=== PATIENT | male | born 1995 | race Caucasian/White ===

== ENCOUNTER 2019-08-08 16:47 | Emergency (ER) | payer SELFPAY ==
[2019-08-08 17:02] VITALS: TEMP 98.8
--- NOTE | 2019-08-08 18:48 | CT ---
EXAM: CT head without contrast CLINICAL INDICATION: Near syncope COMPARISON: There is no previous study for comparison. TECHNIQUE: The CT scan was done using contiguous axial 2.5 mm sections through the brain. This exam was performed according to our departmental dose-optimization program, which includes automated exposure control, adjustment of the mA and/or kV according to patient size and/or use of iterative reconstruction technique. FINDINGS: There is no midline shift, mass effect, or extraaxial fluid collection. There is no evidence of acute intracranial hemorrhage, mass lesion, or cerebral edema. The ventricles and cortical sulci are normal for the patient's age. Bone window images reveal no evidence of a skull fracture. IMPRESSION: No evidence of an acute intracranial process. 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
--- NOTE | 2019-08-08 19:00 | ED.PDOC ---
History of Present Illness - General Chief Complaint: Syncope/Near Syncope Stated Complaint: WHITE, syncopal event Time Seen by Provider: 08/08/19 18:16 Source: patient, RN notes reviewed, Vital Signs reviewed Exam Limitations: no limitations - History of Present Illness Initial Comments: patient had been working an shift yesterday and was walking between the buildings at work started feeling dizzy and his vision home down and he nearly passed out. patient is also complaining of a headache. She denies any dizziness, chest pain, shortness of breath, nausea and diarrhea. Timing/Duration: momentarily Severity: moderate Improving Factors: nothing Worsening Factors: nothing Associated Symptoms: headaches, syncope Allergies/Adverse Reactions: Allergies NO KNOWN ALLERGY Allergy (Verified 08/08/19 17:03) Home Medications: Ambulatory Orders NK 08/08/19 Review of Systems - Review of Systems Constitutional: States: see HPI EENTM: States: see HPI, blurred vision. Denies: eye pain, double vision Respiratory: States: no symptoms reported. Denies: cough, orthopnea, short of b reath Cardiology: States: syncope. Denies: chest pain, palpitations Gastrointestinal/Abdominal: States: no symptoms reported Genitourinary: States: no symptoms reported Musculoskeletal: States: no symptoms reported Skin: States: no symptoms reported Neurological: States: no symptoms reported Endocrine: States: no symptoms reported Hematologic/Lymphatic: States: no symptoms reported All other Systems: Reviewed and Negative Past Medical History (General) - Patient Medical History Hx Stroke: No Hx of COPD: No Hx Cardiac Disorders: No Hx Hypertension: No Hx Diabetes: No Hx Cancer: No Surgical History: no surgical history - Vaccination History Hx Tetanus, Diphtheria Vaccination: No Hx Influenza Vaccination: No Hx Pneumococcal Vaccination: No - Social History Hx Tobacco Use: Yes Hx Alcohol Use: No Hx Substance Use: No Hx Substance Use Treatment: No Hx Depression: No - Female History Patient is a Female of Child Bearing Age (10 -59 yrs old): No Patient : No Family Medical History - Family History Mother Living Status: Still Living Hx Family Diabetes: Yes Physical Exam - Physical Exam General Appearance: Alert, Obese, Well Developed, Well Groomed, Well Hydrated, Well Nourished Eye Exam: bilateral normal Ears, Nose, Throat: hearing grossly normal, normal ENT inspection, normal pharynx Neck: non-tender, full range of motion, supple, normal inspection Respiratory: chest non-tender, lungs clear, normal breath sounds, no respiratory distress, no accessory muscle use Cardiovascular/Chest: normal peripheral pulses, regular rate, rhythm, no edema, no gallop, no JVD, no murmur Peripheral Pulses: radial,right: 2+, radial,left: 2+ Gastrointestinal/Abdominal: normal bowel sounds, non tender, soft Back Exam: normal inspection, no CVA tenderness, no vertebral tenderness Extremity: normal range of motion, non-tender, no pedal edema Neurologic: crystal 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 08/08/19 20:59 Patient's symptoms have completely resolved is feeling much better and desire discharge home. Erlin Webber M.D. #[id number] - Results/Orders Results/Orders: 08/08/19 17:14 EKG Stat Pulse Ox Stat Laboratory Results - last 24 hr 08/08/19 17:30 WBC 4.9 RBC 4.65 L Hgb 14.4 Hct 43.2 MCV 92.7 MCH 30.9 MCHC 33.3 RDW 14.1 Plt Count 199 MPV 8.7 Absolute Neuts (auto) 3.00 Absolute Lymphs (auto) 1.10 Absolute Monos (auto) 0.70 Absolute Eos (auto) 0.10 Absolute Basos (auto) 0.00 Neutrophils % 61.2 Lymphocytes % 22.3 Monocytes % 14.6 H Eosinophils % 1.3 Basophils % 0.6 PT 9.7 INR 0.97 PTT (SP) 26.8 Sodium 141 Potassium 4.2 Chloride 105 Carbon Dioxide 26 Anion Gap 14.2 BUN 14 Creatinine 0.86 BUN/Creatinine Ratio 16.3 Random Glucose 108 H Serum Osmolality 282.3 Calcium 9.3 Magnesium 2.0 Creatine Kinase 272 H* CK-MB (CK-2) 4.4 CK-MB (CK-2) % 1.62 Troponin I < 0.02 B-Natriuretic Peptide < 5.0 EXAM: CT head without contrast CLINICAL INDICATION: Near syncope COMPARISON: There is no previous study for comparison. TECHNIQUE: The CT scan was done using contiguous axial 2.5 mm sections through the brain. This exam was performed according to our departmental dose-optimization program, which includes automated exposure control, adjustment of the mA and/or kV according to patient size and/or use of iterative reconstruction technique. FINDINGS: There is no midline shift, mass effect, or extraaxial fluid collection. There is no evidence of acute intracranial hemorrhage, mass lesion, or cerebral edema. The ventricles and cortical sulci are normal for the patient's age. Bone window images reveal no evidence of a skull fracture. IMPRESSION: No evidence of an acute intracranial process. Electronically signed by: Everette Rasmussen MD 08/08/2019 6:47 PM EXAM DESCRIPTION: CTA Chest CLINICAL HISTORY: 24 years Male syncope COMPARISON: None TECHNIQUE: Images were obtained in axial, sagittal, and coronal planes. Coronal oblique imaging also performed. This exam was performed according to our departmental dose- optimization program which includes use of Automated Exposure Control, adjustment of the mA and/or kV according to patient size and/or use of iterative reconstruction technique. FINDINGS: No filling defects pulmonary arteries bilaterally. No aortic dissection or dilatation. No adenopathy. No pericardial or pleural effusions bilaterally. Decreased attenuation involving liver likely fatty change. Spleen is prominent in size measuring 12.8 cm in greatest dimension. No pneumothorax. No lung parenchymal infiltrates or nodules seen. No acute osseous abnormality. IMPRESSION: No evidence for pulmonary embolus. No aortic dissection or dilatation. No infiltrates seen. 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 Copy, Patient Portal Self Enrollment Instructions: DI for Syncope in Adults (Fainting) Home Medications: Ambulatory Orders NK 08/08/19
[2019-08-08 19:11] VITALS: O2SAT 97
[2019-08-08 20:25] VITALS: BP 111/65
--- NOTE | 2019-08-08 20:31 | CT ---
EXAM DESCRIPTION: CTA Chest CLINICAL HISTORY: 24 years Male syncope COMPARISON: None TECHNIQUE: Images were obtained in axial, sagittal, and coronal planes. Coronal oblique imaging also performed. This exam was performed according to our departmental dose-optimization program which includes use of Automated Exposure Control, adjustment of the mA and/or kV according to patient size and/or use of iterative reconstruction technique. FINDINGS: No filling defects pulmonary arteries bilaterally. No aortic dissection or dilatation. No adenopathy. No pericardial or pleural effusions bilaterally. Decreased attenuation involving liver likely fatty change. Spleen is prominent in size measuring 12.8 cm in greatest dimension. No pneumothorax. No lung parenchymal infiltrates or nodules seen. No acute osseous abnormality. IMPRESSION: No evidence for pulmonary embolus. No aortic dissection or dilatation. No infiltrates seen. 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
== END 2019-08-08 21:05 | disposition home or self-care (01) ==
LOC: ER 16:47
DX: R55 Syncope and collapse (principal); R51 Headache; R00.0 Tachycardia, unspecified; E66.9 Obesity, unspecified; Z68.32 Body mass index [BMI] 32.0-32.9, adult; Z87.891 Personal history of nicotine dependence

== ENCOUNTER 2019-11-28 18:27 | Emergency (ER) | payer SELFPAY | END 2019-11-28 19:06 | disposition left against medical advice (07) | LOC: ER 18:27 | DX: S61.219A Laceration without foreign body of unspecified finger without damage to nail, initial encounter (principal); Z53.21 Procedure and treatment not carried out due to patient leaving prior to being seen by health care provider ==

== ENCOUNTER 2020-01-02 10:47 | Emergency (ER) | payer SELFPAY ==
[2020-01-02 11:18] VITALS: BP 143/84
--- NOTE | 2020-01-02 11:45 | ED.PDOC ---
History of Present Illness - General Chief Complaint: Respiratory Problem Stated Complaint: n/v/d, shortness of breath Time Seen by Provider: 01/02/20 11:22 Source: patient, Vital Signs reviewed, RN/MD Exam Limitations: no limitations - History of Present Illness Comments: Pt is a 24 yo male with no PMH presents to ED for 3 day h/o nonproductive cough, body aches, nausea, vomiting, diarrhea. He denies fever, SOB or abdominal pain. States his boss sent him home from work and needs work note before he can return. Allergies/Adverse Reactions: Allergies NO KNOWN ALLERGY Allergy (Verified 08/08/19 17:03) Home Medications: Ambulatory Orders NK 08/08/19 Review of Systems - Review of Systems Constitutional: Denies: chills, fever, weakness EENTM: States: nose congestion. Denies: throat pain Respiratory: States: cough. Denies: short of breath, wheezing Cardiology: Denies: chest pain, edema, palpitations, syncope Gastrointestinal/Abdominal: States: diarrhea, nausea, vomiting. Denies: abdominal pain Genitourinary: Denies: dysuria, frequency, hematuria Musculoskeletal: States: other - body aches Skin: States: no symptoms reported Neurological: Denies: headache, paresthesia Hematologic/Lymphatic: Denies: easy bleeding, easy bruising All other Systems: Reviewed and Negative Past Medical History (General) - Patient Medical History Hx Stroke: No Hx of COPD: No Hx Cardiac Disorders: No Hx Hypertension: No Hx Diabetes: No Hx Cancer: No Surgical History: no surgical history - Vaccination History Hx Tetanus, Diphtheria Vaccination: No Hx Influenza Vaccination: No Hx Pneumococcal Vaccination: No - Social History Hx Tobacco Use: Yes Hx Chewing Tobacco Use: Yes Hx Alcohol Use: No Hx Substance Use: No Hx Substance Use Treatment: No Hx Depression: No - Female History Patient : No Family Medical History - Family History Mother Living Status: Still Living Hx Family Diabetes: Yes Physical Exam - Physical Exam General Appearance: Alert, Comfortable, No apparent distress ENT Exam: TMs normal, pharynx normal Neck: full range of motion, supple, normal inspection, trachea midline Respiratory: chest non-tender, lungs clear, no respiratory distress, no accessory muscle use Cardiovascular/Chest: regular rate, rhythm, no edema, no murmur Gastrointestinal/Abdominal: non tender, soft, no pulsatile mass Extremity: non-tender, normal inspection, no calf tenderness Progress - Progress Progress: 01/02/20 12:43 Pt presents to ED for 3 day h/o cough and vomiting and body aches. He denies fe iftikhar or SOB. He has had no rrespiraory distress or hypoxia in ED and feels comfortable going home. Labs and imaging reassuring. I have recommended 14 day self quarantine and he will return for any worsening of symptoms. Will f/u with pcp in 1-2 days for recheck. SRP given. - Results/Orders Results/Orders: EXAM DESCRIPTION: Chest,1 View CLINICAL HISTORY: 24 years Male, shortness of breath COMPARISON: None. TECHNIQUE: AP portable chest. FINDINGS: Heart size is normal with normal pulmonary vascularity. No consolidating infiltrate. No pulmonary mass or worrisome nodule. No pneumothorax or pleural effusion. Bones are unremarkable. IMPRESSION: No acute process is identified in the chest. Abnormal Lab Results 01/02/20 01/02/20 11:40 11:40 RBC 4.69 L Absolute Monos (auto) 0.90 H Lymphocytes % 18.9 L Monocytes % 11.9 H Anion Gap 10.5 L Random Glucose 108 H Laboratory Results - last 24 hr 01/02/20 01/02/20 01/02/20 11:35 11:40 11:40 WBC 7.4 RBC 4.69 L Hgb 14.4 Hct 42.9 MCV 91.5 MCH 30.6 MCHC 33.5 RDW 14.4 Plt Count 188 MPV 8.7 Absolute Neuts (auto) 5.00 Absolute Lymphs (auto) 1.40 Absolute Monos (auto) 0.90 H Absolute Eos (auto) 0.10 Absolute Basos (auto) 0.00 Neutrophils % 67.0 Lymphocytes % 18.9 L Monocytes % 11.9 H Eosinophils % 1.8 Basophils % 0.4 Sodium 139 Potassium 4.5 Chloride 109 Carbon Dioxide 24 Anion Gap 10.5 L BUN 11 Creatinine 0.71 BUN/Creatinine Ratio 15.5 Random Glucose 108 H Serum Osmolality 277.5 Calcium 8.8 Total Bilirubin 0.3 AST 25 ALT 39 Alkaline Phosphatase 55 Serum Total Protein 7.1 Albumin 4.1 Globulin 3.0 Albumin/Globulin Ratio 1.4 Urine Color Yellow Urine Appearance Clear Urine pH 7.0 Ur Specific [place] 1.025 Urine Protein Negative Urine Glucose (UA) Negative Urine Ketones Negative Urine Blood Negative Urine Nitrite Negative Urine Bilirubin Negative Urine Urobilinogen 0.2 Ur Leukocyte Esterase Negative Urine RBC 0-1 Urine WBC 0 Ur Epithelial Cells 0 Amorphous Sediment Trace Urine Bacteria 0 Departure - Departure Clinical Impression: Upper respiratory infection Qualifiers: URI type: unspecified URI Qualified Code(s): J06.9 - Acute upper respiratory infection, unspecified Time of Disposition: 12:45 Disposition: Discharge to Home or Self Care Condition: Good Departure Forms: ED Discharge - Pt. Copy, Patient Portal Self Enrollment Instructions: DI for Respiratory Syncytial Virus -- Adults Diet: resume usual diet Activity: increase activity as tolerated Home Medications: Ambulatory Orders NK 08/08/19
[2020-01-02 12:55] VITALS: TEMP 97.8; O2SAT 96
== END 2020-01-02 12:55 | disposition home or self-care (01) ==
LOC: ER 10:47
DX: J06.9 Acute upper respiratory infection, unspecified (principal); R11.10 Vomiting, unspecified; F17.200 Nicotine dependence, unspecified, uncomplicated